=== PATIENT | male | born 1995 | race Two or more races ===

== ENCOUNTER 2021-07-08 00:40 | Emergency (ER) | payer OTHER ==
[~2021-07-08] VITALS: Ht 177.8 cm; Wt 86.2 kg
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
--- NOTE | 2021-07-08 00:44 | NUR ---
DR. SANTANA AT BEDSIDE, MSE IN PROGRESS.
[2021-07-08] MEDS: HYDROCODONE/APAP 10-325 MG TABLET PO ONE (00:58)
[2021-07-08] MEDS ORDERED: HYDROCODONE/APAP 10-325 MG TABLET ONE (01:00)
--- NOTE | 2021-07-08 01:02 | NUR ---
XRAY AT BEDSIDE.
[2021-07-08] MEDS ORDERED: IBUP-1957 PO (02:01)
[2021-07-08] MEDS ORDERED: HYDR-4209 PO (02:01)
--- NOTE | 2021-07-08 02:20 | NUR ---
Patient discharged to home in stable condition. A/O x4, Written and verbal after care instructions given. Patient verbalizes understanding of instructions. Stressed follow up or return to ER for worsening s/s. Steady gait, picked up by family.
[2021-07-08 02:21] VITALS: BP 140/83
== END 2021-07-08 02:20 | disposition home or self-care (01) ==
LOC: ER 00:43
DX: S42.022A Displaced fracture of shaft of left clavicle, initial encounter for closed fracture (principal); S83.91XA Sprain of unspecified site of right knee, initial encounter; S80.211A Abrasion, right knee, initial encounter; V47.5XXA Car driver injured in collision with fixed or stationary object in traffic accident, initial encounter; Y92.411 Interstate highway as the place of occurrence of the external cause
CPT/HCPCS: 71045; 73030; 93005; A4663